=== PATIENT | male | born 1975 | race Caucasian/White ===

== ENCOUNTER 2016-12-14 16:54 | Emergency (ER) | payer MEDICAID ==
[~2016-12-14] VITALS: Ht 172.7 cm; Wt 90.0 kg
[2016-12-14 16:56] VITALS: Ht 172.7 cm; Wt 90.0 kg
[2016-12-14] MEDS ORDERED: IBUP-1542 PO (19:17)
[2016-12-14] MEDS ORDERED: TRAM50TA2 PO (19:17)
--- NOTE | 2016-12-14 19:22 | ERD ---
ER Documentation Chief Complaint Date/Time DATE: 12/14/16 TIME: 19:19 Chief Complaint RT WRIST PAIN X 3 DAYS HPI This 41-year-old male presents with right wrist pain for last 3 days. He was seen at an outside clinic and had a x-ray which showed a scaphoid lucency. He had a CT scan as well as recommended by the x-ray reading but it does not have the results. History significant for wrist fracture many years ago was recommended to have surgery and he was told that he would have long-term complications if he did not surgery. He has had minimal pain since before this week. He had some repetitive motion this week but denies any significant trauma. ROS All systems reviewed and are negative except as per history of present illness. Medications Home Meds Active Scripts Tramadol HCl (Tramadol HCl) 50 Mg Tablet, 50 MG PO Q4 Y for PAIN, #20 TAB Prov:VANNESSA NUNEZ MD 12/14/16 Ibuprofen* (Motrin*) 600 Mg Tab, 600 MG PO Q6, #20 TAB Prov:VANNESSA NUNEZ MD 12/14/16 Allergies Allergies: Coded Allergies: No Known Allergy (Unverified , 01/12/16) PMhx/Soc Medical and Surgical Hx: pt denies Medical Hx, pt denies Surgical Hx History of Surgery: No Anesthesia Reaction: No Hx Neurological Disorder: No Hx Respiratory Disorders: No Hx Cardiac Disorders: No Hx Psychiatric Problems: No Hx Miscellaneous Medical Probl: No Hx Alcohol Use: Yes (drink beer every day) Hx Substance Use: No Hx Tobacco Use: No Smoking Status: Never smoker Physical Exam Vitals Vital Signs Date Time Temp Pulse Resp B/P Pulse Ox O2 Delivery O2 Flow Rate FiO2 12/14/16 16:56 99.9 102 18 152/98 98 Physical Exam Const: [], [id number]. Head: Atraumatic Eyes: Normal Conjunctiva ENT: Normal External Ears, Nose and Mouth. Neck: Full range of motion..~ No meningismus. Resp: Clear to auscultation bilaterally Cardio: Regular rate and rhythm, no murmurs Abd: Soft, non tender, non distended. Normal bowel sounds Skin: No petechiae or rashes Back: No midline or flank tenderness Ext: No cyanosis, or edema. Tenderness of the right snuffbox and mild swelling of the right wrist joint. No restricted range of motion or weakness. No signs of ischemia. Neur: Awake and alert Psych: Normal Mood and Affect Results 24 hrs Current Medications Medications (Trade) Dose Ordered Sig/[place] Route PRN Reason Start Time Stop Time Status Last Admin Dose Admin Ibuprofen (Motrin) 600 mg ONCE ONCE PO 12/14/16 19:30 12/14/16 19:31 Procedures/MDM X-ray report was reviewed which showed a scaphoid lucency and some radiocarpal degenerative changes. Patient was placed in a right thumb spica splint. Patient is nervous intact after splint. Patient presented to the emergency room primarily because of his he only has emergency insurance coverage . Patient was advised he likely has a complication of a previously untreated scaphoid fracture. Patient was advised he will need hand surgery follow-up. There is no signs or symptoms of bacterial infection or open fracture emergent condition requiring immediate treatment. Patient was discharged home in a splint and referral to local pain clinic. Patient was advised to return for fevers, additional symptoms otherwise use splint and follow-up with specialist as directed. Departure Diagnosis: Primary Impression: Fracture of scaphoid bone of right wrist with malunion Scaphoid bone location: unspecified portion of scaphoid Fracture type: closed Fracture alignment: nondisplaced Additional Impression: Wrist injury Encounter type: initial encounter Laterality: right Qualified Code: S69.91XA - Wrist injury, right, initial encounter Condition: Stable Patient Instructions: Fracture, Navicular (Wrist), Suspected Referrals: [facility] Additional Instructions: Likely complication of scaphoid fracture. See hand surgeon and orthopedist for further evaluation. VANNESSA NUNEZ MD Dec 14, 2016 19:21
[2016-12-14] MEDS ORDERED: IBUPROFEN 600 MG TAB PO ONE (19:30)
[2016-12-14] MEDS ORDERED: traMADol 50 MG TAB PO ONE (19:30)
== END 2016-12-14 19:43 | disposition home or self-care (01) ==
LOC: FTE 16:54
DX: S62.001A Unspecified fracture of navicular [scaphoid] bone of right wrist, initial encounter for closed fracture (principal); X58.XXXA Exposure to other specified factors, initial encounter; Y92.9 Unspecified place or not applicable
CPT/HCPCS: 29125; Z7502; Z7610